=== PATIENT | male | born 1980 | race Caucasian/White ===

== ENCOUNTER → 2019-10-16 12:38 | Outpatient (CLI) | payer OTHER, SELFPAY ==
--- NOTE | 2019-10-16 | DI.MRI.S_ITS ---
PROCEDURE: MR WRIST LT WO/W CON INDICATIONS: Other specified joint disorders, left wrist TECHNIQUE: Noncontrast coronal proton density fast spin echo and T2 fast spin echo with fat saturation; coronal 3-D gradient echo, axial T1 spin echo and T2 fast spin echo with fat saturation, axial T1 spin echo with fat saturation, sagittal T1 spin echo through the wrist. Post-contrast axial, coronal, and sagittal T1 spin echo with fat saturation through the wrist. COMPARISON: None. FINDINGS: Image quality: Excellent. Bones and cartilage: No bone marrow contusions or acute fractures. There is a small ossicle adjacent to the ulnar styloid consistent with sequelae of an old fracture. There is mild degeneration at the triscaphe articulation with cartilage thinning associated with mild subchondral edema and cystic changes. Following contrast administration, there is mild associated subchondral enhancement. Elsewhere, no suspicious intraosseous enhancement. The carpal bones are normally aligned. No evidence for avascular necrosis. Overlying cartilage surfaces appear normal. Carpal ligaments: The scapholunate and lunotriquetral ligaments appear intact. In the absence of intra-articular contrast, the extrinsic carpal ligaments are not well identified. On sagittal images, the pisohamate ligament appears intact. Triangular fibrocartilage complex: The triangular fibrocartilage appears intact. The adjacent meniscal homolog appears normal in the absence of intra-articular contrast. The extensor carpi ulnaris tendon is normal in location and morphology. Tendons and soft tissues: No suspicious soft tissue enhancement. The carpal tunnel structures appear normal, including the median nerve. The ulnar nerve appears normal within Guyon's canal. All six extensor tendon compartments demonstrate normal morphology, without pathologic tendon sheath fluid. There is a small septated cyst or cluster of cysts along the dorsal aspect of the carpus at the level of the capitate measuring up to 0.6 x 0.4 x 0.9 cm compatible with a ganglion cyst. No associated suspicious internal enhancement. IMPRESSION: 1. Small dorsal ganglion cyst at the level of the capitate. 2. 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 3. Sequelae of an old ulnar styloid fracture. Dictated by: Riki Solis M.D. on 10/16/2019 at 16:30 Approved by: Riki Solis M.D. on 10/16/2019 at 16:40
== END ==
PROVIDERS: Visit Provider Orthopaedic Surgery
DX: M25.832 Other specified joint disorders, left wrist (principal); M67.432 Ganglion, left wrist
CPT/HCPCS: 73223; A9579